=== PATIENT | female | born 2000 | race Caucasian/White ===

== ENCOUNTER 2024-09-30 06:28 | Day surgery (SDC) | payer MEDICAID ==
[2024-09-30] MEDS ORDERED: Lactated Ringers 1,000 ML IV SCH (06:30)
[2024-09-30 07:03] LABS: PLATELET COUNT,PLT 202.0 K/uL (130-375); RED BLOOD CELL COUNT 4.05 M/uL (3.77-5.24); WHITE BLOOD CELL COUNT,WBC 6.8 K/uL (3.2-11.0)
[2024-09-30 07:22] LABS: A/G RATIO 1.0 (1.2-2.2); ALANINE AMINOTRANSFERASE,ALT 37 U/L (12-78); ASPARTATE AMNIOTRANSFERASE,AST 19 U/L (15-37); BILIRUBIN TOTAL 0.3 mg/dL (0.2-1.0); BLOOD UREA NITROGEN,BUN 15 mg/dL (7-18); CARBON DIOXIDE,CO2 26 mmol/L (21-32); CHLORIDE,CL 105 mmol/L (100-108); CREATININE 0.9 mg/dL (0.6-1.0); EST CRCL DRUG DOSING (CG) 77.55 mL/min; ESTIMATED GFR 93 mL/min (>60); GLUCOSE RANDOM 111 mg/dL (74-106); POTASSIUM,K 3.7 mmol/L (3.6-5.2); PROTEIN TOTAL,TP 6.7 g/dL (6.4-8.2); SODIUM,NA 139 mmol/L (140-148)
[2024-09-30] MEDS ORDERED: Ondansetron 4 MG/2 ML SDV ONE (07:22)
[2024-09-30] MEDS ORDERED: Glycopyrrolate 0.2 MG/ML 5 ML MDV ONE (07:22)
[2024-09-30] MEDS ORDERED: Succinylcholine 200 MG/10 ML MDV ONE (07:22)
[2024-09-30] MEDS ORDERED: Propofol 200 MG/20 ML SDV ONE (07:22)
[2024-09-30] MEDS ORDERED: Dexamethasone 4 MG/ML SDV ONE (07:22)
[2024-09-30] MEDS ORDERED: fentaNYL 250 MCG/5 ML SDV ONE (07:22)
[2024-09-30] MEDS ORDERED: Midazolam 1 MG/ML 2 ML SDV ONE (07:26)
[2024-09-30] MEDS: Indocyanine Green 25 MG SDV IV ONE (07:35)
[2024-09-30] MEDS: metroNIDAZOLE/Normal Saline 500 MG in Premix Bag 1 BAG IV ONE (07:55)
[2024-09-30] MEDS: Lidocaine 1% with EPINEPHrine 1:100,000 50 ML MDV ONE (08:45)
[2024-09-30] MEDS ORDERED: Ketorolac 30 MG/ML SDV ONE (08:46)
[2024-09-30] MEDS ORDERED: fentaNYL 100 MCG/2 ML SDV ONE (09:28)
[2024-09-30] MEDS: Ondansetron 4 MG/2 ML SDV IVPUSH ONE (10:09)
[2024-09-30] MEDS: hydrOXYzine HCL 100 MG/2 ML SDV IM ONE (11:04)
[2024-09-30] MEDS: Ondansetron 4 MG/2 ML SDV IVPUSH PRN (13:13)
[2024-09-30] MEDS: Acetaminophen/HYDROcodone 325-5 MG Tab PO PRN (13:57)
== END 2024-09-30 17:56 | disposition home or self-care (01) ==
LOC: JP.SDS 06:28
PROVIDERS: ATTEND Surgery
DX: K81.1 Chronic cholecystitis (principal); Z88.8 Allergy status to other drugs, medicaments and biological substances; Z86.16 Personal history of COVID-19; Z79.899 Other long term (current) drug therapy; Z91.018 Allergy to other foods
CPT/HCPCS: 00790; 36415; 47563; 80053; 84703; 85027; A9270; J0171; J0330; J0665; J0690; J1100; J1642; J1836; J1885; J2250; J2405; J2704; J2795; J3010; J3410; J7030; J1171; J1596; J2710; J3490